=== PATIENT | female | born 1960 | race Caucasian/White ===

== ENCOUNTER 2016-07-14 16:53 | Emergency (ER) | payer MEDICAID ==
[2016-07-14] MEDS ORDERED: Sodium Chloride 0.9% 1,000 ML IV ONE (17:26)
[2016-07-14] MEDS ORDERED: Morphine 10 MG/ML Syringe IV ONE (17:26)
[2016-07-14] MEDS ORDERED: Ondansetron 4 MG/2 ML SDV IVPUSH ONE (17:26)
--- NOTE | 2016-07-14 17:32 | EDM.PDOC ---
ED HPI GI/ABDOMINAL - General Chief Complaint: Abdominal Pain Stated Complaint: PAIN IN ABDOMEN Time Seen by Provider: 07/14/16 17:25 Source of Information: Reports: Patient History Limitations: Reports: No limitations - History of Present Illness INITIAL COMMENTS - FREE TEXT/NARRATIVE: History of present illness: [55-year-old female presenting with abdominal pain diffusely spread across all quadrants a 6-810 status post left kidney resection for cancer on . Patient indicates this pain is new and increasing and that the abdomen is not any larger than it was before.] Review of systems: As per history of present illness and below otherwise all systems reviewed and negative. Past medical history: As per history of present illness and as reviewed below otherwise noncontributory. Surgical history: As per history of present illness and as reviewed below otherwise noncontributory. Social history: No reported history of drug or alcohol abuse. Family history: As per history of present illness and as reviewed below otherwise noncontributory. Physical exam: HEENT: Atraumatic, normocephalic, pupils reactive, negative for conjunctival pallor or scleral icterus, mucous membranes moist, throat clear, neck supple, nontender, trachea midline. Lungs: Clear to auscultation, breath sounds equal bilaterally, chest nontender. Heart: S1S2, regular, negative for clicks, rubs, or JVD. Abdomen: Firm, nondistended, exquisite tenderness in all quads. Negative for masses or hepatosplenomegaly. Negative for costovertebral tenderness. Pelvis: Stable nontender. Genitourinary: Deferred. Rectal: Deferred. Extremities: Atraumatic, negative for cords or calf pain. Neurovascular unremarkable. Neuro: Awake, alert, oriented. Cranial nerves II through XII unremarkable. Cerebellum unremarkable. Motor and sensory unremarkable throughout. Exam nonfocal. Diagnostics: [CBC, CMP, INR, CT of abdomen and pelvis with contrast] Therapeutics: [IV, morphine, Zofran] Impression: [Dental pain] Plan: [Transfer to [place]] Definitive disposition and diagnosis as appropriate pending reevaluation and review of above. - Related Data Allergies/ADRs: Allergies Allergy/AdvReac Type Severity Reaction Status Date / Time prednisolone Allergy Agitation Verified 01/21/16 23:59 Home Meds: Home Meds Amitriptyline [Elavil] 25 mg PO BEDTIME 07/26/15 [History] Furosemide [Lasix] 20 mg PO DAILY 07/26/15 [History] Insulin Aspart [NovoLOG] See Protocol SQ ASDIRECTED 07/26/15 [History] Metoprolol Succinate [Toprol XL] 25 mg PO DAILY 07/26/15 [History] Omeprazole 20 mg PO DAILY 07/26/15 [History] Pregabalin [Lyrica] 300 mg PO BID 07/26/15 [History] Zolpidem [Ambien] 5 mg PO BEDTIME PRN 07/26/15 [History] DULoxetine [Cymbalta] 60 mg PO DAILY 12/09/15 [History] atorvaSTATin Calcium [Atorvastatin Calcium] 80 mg PO BEDTIME 12/09/15 [History] Hydrocodone/Acetaminophen [Hydrocodon-Acetaminophen 5-325] 1 - 2 each PO Q4HR PRN 01/04/16 [History] Apixaban [Eliquis] 5 mg PO DAILY 07/14/16 [History] Docusate Sodium [Doc-Q-Lace] 100 mg PO DAILY 07/14/16 [History] Tresiba 200 Units/Ml 72 units SQ BEDTIME 07/14/16 [History] Past Medical History HEENT History: Reports: Other (see below) Other HEENT History: uses reading glasses, has dentures but doesn't wear Cardiovascular History: Reports: High cholesterol, Hypertension, PVD Respiratory History: Reports: COPD, Sleep apnea Other Respiratory History: does not use CPAP Gastrointestinal History: Reports: GERD Genitourinary History: Reports: Urinary incontinence, Other (see below) Other Genitourinary History: currently has a kidney mass [employer]OR History: Reports: Ectopic , Musculoskeletal History: Reports: Fracture Other Musculoskeletal History: pinky knuckle Neurological History: Reports: Neuropathy, diabetic Psychiatric History: Reports: Anxiety, Depression Endocrine/Metabolic History: Reports: Diabetes, type II, Obesity/BMI 30+ Hematologic History: Reports: Blood transfusion(s) Other Hematologic History: blood transfusion with ectopic Immunologic History: Reports: None Oncologic (Cancer) History: Reports: None Dermatologic History: Reports: None Other Dermatologic History: 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 - Infectious Disease History Infectious Disease History: Reports: None - Past Surgical History Head Surgeries/Procedures: Reports: None HEENT Surgical History: Reports: None Cardiovascular Surgical History: Reports: None GI Surgical History: Reports: Cholecystectomy, Colonoscopy Female Surgical History: Reports: section, Hysterectomy, Salpingo- oophorectomy, Other (see below) Other Female Surgeries/Procedures: Laparotomy for ectopic , bladder repair surgery (sling x2 failed) Endocrine Surgical History: Reports: None Neurological Surgical History: Reports: None Musculoskeletal Surgical History: Reports: Amputation Other Musculoskeletal Surgeries/Procedures:: right foot...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 Oncologic Surgical History: Reports: None Dermatological Surgical History: Reports: None Social & Family History - Family History Family Medical History: Noncontributory HEENT: Reports: None Cardiac: Reports: CAD, [place] Respiratory: Reports: COPD OBGYN: Reports: Musculoskeletal: Reports: Arthritis Neurological: Reports: CVA, Seizure Endocrine/Metabolic: Reports: Diabetes, type II Oncologic: Reports: Colon - Tobacco Use Smoking Status *Q: Former Smoker Years of Tobacco use: 40 Packs/Tins Daily: 1 Used Tobacco, but Quit: No Month Tobacco Last Used: December 2015 Second Hand Smoke Exposure: Yes - Caffeine Use Caffeine Use: Reports: Coffee, Soda, Tea - Recreational Drug Use Recreational Drug Use: No Drug Use in Last 12 Months: No ED ROS GENERAL - Review of Systems Review Of Systems: See Below (See history of present illness) ED EXAM, GI/ABD - Physical Exam Exam: See Below (See history of present illness) Course - Vital Signs Last Recorded V/S: Last Vital Signs Temp 36.4 C 07/14/16 19:20 Pulse 83 07/14/16 19:20 Resp 20 07/14/16 19:20 BP 139/59 L 07/14/16 19:20 Pulse Ox 98 07/14/16 19:20 - Orders/Labs/Meds Orders: Active Orders 24 hr Category Date Time Status Abdomen Pelvis wo Cont [CT] Stat Exams 07/14/16 18:37 Taken Labs: Laboratory Tests 07/14/16 07/14/16 07/14/16 Range/Units 17:59 17:59 17:59 WBC 11.65 H (4.0-11.0) K/uL RBC 5.09 (4.30-5.90) M/uL Hgb 14.1 (12.0-16.0) g/dL Hct 42.8 (36.0-46.0) % MCV 84.1 (80.0-98.0) fL MCH 27.7 (27.0-32.0) pg MCHC 32.9 (31.0-37.0) g/dL RDW Std Deviation 52.0 (28.0-62.0) fl RDW Coeff of Bony 17 H (11.0-15.0) % Plt Count 260 (150-400) K/uL MPV 11.00 (7.40-12.00) fL Neut % (Auto) 63.9 (48.0-80.0) % Lymph % (Auto) 27.6 (16.0-40.0) % Early % (Auto) 6.4 (0.0-15.0) % Eos % (Auto) 1.8 (0.0-7.0) % Baso % (Auto) 0.3 (0.0-1.5) % Neut # (Auto) 7.4 H (1.4-5.7) K/uL Lymph # (Auto) 3.2 H (0.6-2.4) K/uL Early # (Auto) 0.8 (0.0-0.8) K/uL Eos # (Auto) 0.2 (0.0-0.7) K/uL Baso # (Auto) 0.0 (0.0-0.1) K/uL Nucleated RBC % 0.0 /100WBC Nucleated RBCs # 0 K/uL INR 0.95 (0.86-1.11) Sodium 138 (136-146) mmol/L Potassium 4.1 (3.5-5.1) mmol/L Chloride 101 (98-110) mmol/L Carbon Dioxide 24 (21-31) mmol/L BUN 9 (6.0-23.0) mg/dL Creatinine 0.8 (0.6-1.5) mg/dL Est Cr Clr Drug Dosing 74.38 mL/min Estimated GFR (MDRD) > 60.0 ml/min Glucose 327 H (60-110) mg/dL Calcium 9.6 (8.8-10.8) mg/dL Total Bilirubin 0.4 (0.1-1.5) mg/dL AST 10 (5-40) IU/L ALT 19 (8-54) IU/L Alkaline Phosphatase 158 H (40-150) Total Protein 8.0 (6.0-8.0) g/dL Albumin 3.9 (3.5-5.0) g/dL Globulin 4.1 H (2.0-3.5) g/dL Albumin/Globulin Ratio 1.0 L (1.3-2.8) Amylase 19 (10-90) U/L Lipase < 8 (7-80) U/L Meds: Medications Discontinued Medications Generic Name Dose Route Start Last Admin Trade Name Meenakshi PRN Reason Stop Dose Admin Sodium Chloride 1,000 mls @ 999 mls/hr 07/14/16 17:26 07/14/16 18:01 Normal Saline IV 07/14/16 18:26 999 mls/hr STAT ONE Administration Morphine Sulfate 2 mg 07/14/16 17:26 07/14/16 18:05 Morphine IV 07/14/16 17:27 2 mg ONETIME ONE Administration Morphine Sulfate 2 mg 07/14/16 20:50 07/14/16 21:30 Morphine IVPUSH 07/14/16 20:51 2 mg ONETIME ONE Administration Ondansetron HCl 8 mg 07/14/16 17:26 07/14/16 18:02 Zofran IVPUSH 07/14/16 17:27 8 mg ONETIME ONE Administration Departure - Departure Time of Disposition: 21:41 Disposition: DC/Tfer to Acute Hospital 02 Condition: good Clinical Impression: Abdominal pain Forms: ED Department Discharge - My Orders Last 24 Hours: My Active Orders 07/14/16 18:37 Abdomen Pelvis wo Cont [CT] Stat - Assessment/Plan Last 24 Hours: My Active Orders 07/14/16 18:37 Abdomen Pelvis wo Cont [CT] Stat
[2016-07-14 18:30] LABS: CHLORIDE,CL 101 mmol/L (98-110); SODIUM,NA 138 mmol/L (136-146)
[2016-07-14] MEDS ORDERED: Morphine 2 MG/ML Syringe IVPUSH ONE (20:50)
[2016-07-15 01:48] VITALS: BP 114/55
--- NOTE | 2016-07-15 15:42 | CT ---
EXAM DATE: 07/14/16 PATIENT'S AGE: 55 Patient: JOSE SANTOS Facility: [place], [place] Site . Site : 1960 Study: CT Abdomen/Pelvis [id number] 6:51:05 PM Ordering Physician: Doctor Mason Final Report: INDICATION: Abdominal pain. Status post partial nephrectomy 9 days ago. TECHNIQUE: CT abdomen and pelvis without contrast. COMPARISON: None available FINDINGS: Lower chest: Unremarkable. Liver: Hepatomegaly measuring 26.6 centimeters craniocaudally. Mild hepatic steatosis. Small foci of increased attenuation could be related to foci of fatty sparing or nonspecific lesions. A 2.1 x 1.4 centimeter irregular near water attenuation in the posterior aspect of the lateral segment of the left hepatic lobe, suggestive of a cyst Spleen: Mild splenomegaly measuring 13.9 centimeters. Pancreas: Unremarkable. Gallbladder and bile ducts: Cholecystectomy. Adrenal glands: A 2.9 x 1.9 centimeter left adrenal low density nodule, demonstrating internal attenuation of approximately 5 Hounsfield units, compatible with an adenoma. Kidneys: Postsurgical changes in the left renal lower pole status post partial resection with adjacent stranding and edema. A 3.8 x 2.4 x 7 centimeter slightly higher than water attenuation inferior left perirenal collection. No hydronephrosis or discrete urolithiasis. GI tract: No bowel obstruction. A normal appendix. Sigmoid diverticula without diverticulitis. Vascular structures: Arthrosclerotic changes. Lymph nodes: Borderline periportal/portacaval and pelvic lymph nodes, as well as shotty subcentimeter left para-aortic lymph nodes, nonspecific. Miscellaneous: No free air or significant free fluid. Areas of edema in the anterior abdominal wall subcutaneous fat, probably residual postsurgical. Pelvic Organs: Post hysterectomy changes. Prominent left adnexa for the patient` s age measuring 4.4 x 2.8 centimeters, containing low-density structures, which measure up to 1.9 x 2.0 centimeters. A small focus of gas within the urinary bladder. Bones: A mohit transitional lumbosacral anatomy on the left. IMPRESSION: Post partial left nephrectomy changes. A slightly higher than water attenuation left perirenal collection could represent a seroma or an evolving hematoma. An infected collection cannot be excluded without intravenous contrast. Hepatosplenomegaly. Mild hepatic steatosis. Several small dense hepatic foci could be related to fatty sparing, although small lesions are not excluded. Recommend followup postcontrast evaluation. Shotty subcentimeter and borderline abdominal and pelvic lymph nodes, nonspecific. If there is history of malignancy, followup should be obtained. Enlarged left adnexa for the patient`s age, containing low-density lesions, measuring up to 2 centimeters. Recommend sonographic evaluation and followup in a patient of this age, to exclude neoplasm. A small focus of gas in the urinary bladder is probably related to recent instrumentation. Correlate with urinalysis to exclude an infectious process. Dictated by Taj Elizabeth MD @ 07/14/2016 7:32:25 PM Dictated by: Taj Elizabeth MD @ 07/14/2016 19:32:33 (Electronic Signature) Report Signed by Proxy and Original Signed Document filed in the Medical Record. MTDD
== END 2016-07-14 22:20 ==
LOC: MW.ED 16:53
DX: R10.84 Generalized abdominal pain (principal); I10 Essential (primary) hypertension; E78.00 Pure hypercholesterolemia, unspecified; J44.9 Chronic obstructive pulmonary disease, unspecified; G47.30 Sleep apnea, unspecified; K21.9 Gastro-esophageal reflux disease without esophagitis; E11.9 Type 2 diabetes mellitus without complications; F41.8 Other specified anxiety disorders; E66.9 Obesity, unspecified; Z68.30 Body mass index [BMI] 30.0-30.9, adult; Z90.49 Acquired absence of other specified parts of digestive tract; Z98.890 Other specified postprocedural states; Z90.710 Acquired absence of both cervix and uterus; Z89.421 Acquired absence of other right toe(s); Z87.891 Personal history of nicotine dependence; Z79.4 Long term (current) use of insulin; Z79.899 Other long term (current) drug therapy; Z88.8 Allergy status to other drugs, medicaments and biological substances
CPT/HCPCS: 36415; 74176; 80053; 82150; 83690; 85025; 85610; 96361; 96374; 96375; 96376; 99285; J2270; J2405; J7040; 99284

== ENCOUNTER 2016-07-17 20:12 | Observation (INO) | payer MEDICAID ==
--- NOTE | 2016-07-17 20:18 | EDM.PDOC ---
ED HPI GENERAL MEDICAL PROBLEM - General Stated Complaint: CHEST PAIN Time Seen by Provider: 07/17/16 20:14 - History of Present Illness INITIAL COMMENTS - FREE TEXT/NARRATIVE: HISTORY AND PHYSICAL: History of present illness: Patient 55-year-old white female past medical history significant for diabetes hypertension and recent renal biopsy was of concern of chest pain is vaguely described no associated shortness of breath nausea vomiting fever chills or other concern Review of systems: As per history of present illness and below otherwise all systems reviewed and negative. Past medical history: As per history of present illness and as reviewed below otherwise noncontributory. Surgical history: As per history of present illness and as reviewed below otherwise noncontributory. Social history: No reported history of drug or alcohol abuse. Family history: As per history of present illness and as reviewed below otherwise noncontributory. Physical exam: HEENT: Atraumatic, normocephalic, pupils reactive, negative for conjunctival pallor or scleral icterus, mucous membranes moist, throat clear, neck supple, nontender, trachea midline. Lungs: Clear to auscultation, breath sounds equal bilaterally, chest nontender. Heart: S1S2, regular, negative for clicks, rubs, or JVD. Abdomen: Soft, nondistended, nontender. Negative for masses or hepatosplenomegaly. Negative for costovertebral tenderness. Pelvis: Stable nontender. Genitourinary: Deferred. Rectal: Deferred. Extremities: Atraumatic, negative for cords or calf pain. Neurovascular unremarkable. Neuro: Awake, alert, oriented. Cranial nerves II through XII unremarkable. Cerebellum unremarkable. Motor and sensory unremarkable throughout. Exam nonfocal. Diagnostics: CBC CMP PT/INR troponin d-dimer chest x-ray EKG Therapeutics: IV O2 monitor she received aspirin by EMS prior to arrival Impression: #1 chest pain #2 history of diabetes #3 history of hypertension #4 recent renal biopsy Definitive disposition and diagnosis as appropriate pending reevaluation and review of above. - Related Data Allergies Allergy/AdvReac Type Severity Reaction Status Date / Time prednisolone Allergy Agitation Verified 01/21/16 23:59 Home Meds: Home Meds Amitriptyline [Elavil] 25 mg PO BEDTIME 07/26/15 [History] Furosemide [Lasix] 20 mg PO DAILY 07/26/15 [History] Insulin Aspart [NovoLOG] See Protocol SQ ASDIRECTED 07/26/15 [History] Metoprolol Succinate [Toprol XL] 25 mg PO DAILY 07/26/15 [History] Omeprazole 20 mg PO DAILY 07/26/15 [History] Pregabalin [Lyrica] 300 mg PO BID 07/26/15 [History] Zolpidem [Ambien] 5 mg PO BEDTIME PRN 07/26/15 [History] DULoxetine [Cymbalta] 60 mg PO DAILY 12/09/15 [History] atorvaSTATin Calcium [Atorvastatin Calcium] 80 mg PO BEDTIME 12/09/15 [History] Hydrocodone/Acetaminophen [Hydrocodon-Acetaminophen 5-325] 1 - 2 each PO Q4HR PRN 01/04/16 [History] Apixaban [Eliquis] 5 mg PO DAILY 07/14/16 [History] Docusate Sodium [Doc-Q-Lace] 100 mg PO DAILY 07/14/16 [History] Tresiba 200 Units/Ml 72 units SQ BEDTIME 07/14/16 [History] Past Medical History HEENT History: Reports: Other (see below) Other HEENT History: uses reading glasses, has dentures but doesn't wear Cardiovascular History: Reports: High cholesterol, Hypertension, PVD Respiratory History: Reports: COPD, Sleep apnea Other Respiratory History: does not use CPAP Gastrointestinal History: Reports: GERD Genitourinary History: Reports: Urinary incontinence, Other (see below) Other Genitourinary History: currently has a kidney mass [employer]KEET [employer]ISER History: Reports: Ectopic , Musculoskeletal History: Reports: Fracture Other Musculoskeletal History: pinky knuckle Neurological History: Reports: Neuropathy, diabetic Psychiatric History: Reports: Anxiety, Depression Endocrine/Metabolic History: Reports: Diabetes, type II, Obesity/BMI 30+ Hematologic History: Reports: Blood transfusion(s) Other Hematologic History: blood transfusion with ectopic Immunologic History: Reports: None Oncologic (Cancer) History: Reports: None Dermatologic History: Reports: None Other Dermatologic History: 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 - Infectious Disease History Infectious Disease History: Reports: None - Past Surgical History Head Surgeries/Procedures: Reports: None HEENT Surgical History: Reports: None Cardiovascular Surgical History: Reports: None GI Surgical History: Reports: Cholecystectomy, Colonoscopy Female Surgical History: Reports: section, Hysterectomy, Salpingo- oophorectomy, Other (see below) Other Female Surgeries/Procedures: Laparotomy for ectopic , bladder repair surgery (sling x2 failed) Endocrine Surgical History: Reports: None Neurological Surgical History: Reports: None Musculoskeletal Surgical History: Reports: Amputation Other Musculoskeletal Surgeries/Procedures:: right foot...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 Oncologic Surgical History: Reports: None Dermatological Surgical History: Reports: None Social & Family History - Family History Family Medical History: Noncontributory HEENT: Reports: None Cardiac: Reports: CAD, [place] Respiratory: Reports: COPD OBGYN: Reports: Musculoskeletal: Reports: Arthritis Neurological: Reports: CVA, Seizure Endocrine/Metabolic: Reports: Diabetes, type II Oncologic: Reports: Colon - Tobacco Use Smoking Status *Q: Former Smoker Years of Tobacco use: 40 Packs/Tins Daily: 1 Used Tobacco, but Quit: No Month Tobacco Last Used: December 2015 Second Hand Smoke Exposure: Yes - Caffeine Use Caffeine Use: Reports: Coffee, Soda, Tea - Recreational Drug Use Recreational Drug Use: No Drug Use in Last 12 Months: No ED ROS GENERAL - Review of Systems Review Of Systems: ROS reveals no pertinent complaints other than HPI. ED EXAM, GENERAL - Physical Exam Exam: See Below (See dictation) Course - Vital Signs Last Recorded V/S: Last Vital Signs Temp 36.6 C 07/17/16 20:34 Pulse 95 07/17/16 20:34 Resp 20 07/17/16 20:34 BP 121/72 07/17/16 20:34 Pulse Ox 97 07/17/16 20:34 - Orders/Labs/Meds Orders: Active Orders 24 hr Category Date Time Status EKG Documentation Completion [RC] STAT Care 07/17/16 20:15 Active Ang Chest [CT] Stat Exams 07/17/16 21:03 Ordered Chest 1V Frontal [CR] Stat Exams 07/17/16 20:15 Taken CKMB [CHEM] Stat Lab 07/17/16 20:26 Received COMPREHENSIVE METABOLIC PN,CMP [CHEM] Stat Lab 07/17/16 20:26 Received Labs: Laboratory Tests 07/17/16 07/17/16 07/17/16 Range/Units 20:26 20:26 20:26 WBC 12.12 H (4.0-11.0) K/uL RBC 5.26 (4.30-5.90) M/uL Hgb 14.5 (12.0-16.0) g/dL Hct 43.5 (36.0-46.0) % MCV 82.7 (80.0-98.0) fL MCH 27.6 (27.0-32.0) pg MCHC 33.3 (31.0-37.0) g/dL RDW Std Deviation 50.0 (28.0-62.0) fl RDW Coeff of Bony 17 H (11.0-15.0) % Plt Count 262 (150-400) K/uL MPV 11.40 (7.40-12.00) fL Neut % (Auto) 68.4 (48.0-80.0) % Lymph % (Auto) 23.9 (16.0-40.0) % Reynolds % (Auto) 5.8 (0.0-15.0) % Eos % (Auto) 1.5 (0.0-7.0) % Baso % (Auto) 0.4 (0.0-1.5) % Neut # (Auto) 8.3 H (1.4-5.7) K/uL Lymph # (Auto) 2.9 H (0.6-2.4) K/uL Reynolds # (Auto) 0.7 (0.0-0.8) K/uL Eos # (Auto) 0.2 (0.0-0.7) K/uL Baso # (Auto) 0.1 (0.0-0.1) K/uL Nucleated RBC % 0.0 /100WBC Nucleated RBCs # 0 K/uL D-Dimer, Quantitative 0.56 H (0.0-0.52) mg/LFEU Troponin I < 0.10 (0.0-0.29) NG/ML Departure - Departure Time of Disposition: 21:10 Disposition: Refer to Observation Condition: good Clinical Impression: Chest pain - My Orders Last 24 Hours: My Active Orders 07/17/16 20:15 EKG Documentation Completion [RC] STAT Chest 1V Frontal [CR] Stat 07/17/16 20:26 CKMB [CHEM] Stat COMPREHENSIVE METABOLIC PN,CMP [CHEM] Stat 07/17/16 21:03 Ang Chest [CT] Stat - Assessment/Plan Last 24 Hours: My Active Orders 07/17/16 20:15 EKG Documentation Completion [RC] STAT Chest 1V Frontal [CR] Stat 07/17/16 20:26 CKMB [CHEM] Stat COMPREHENSIVE METABOLIC PN,CMP [CHEM] Stat 07/17/16 21:03 Ang Chest [CT] Stat
[2016-07-17 21:11] LABS: CHLORIDE,CL 103 mmol/L (98-110); SODIUM,NA 139 mmol/L (136-146)
[2016-07-17] MEDS ORDERED: Iopamidol 755 Mg/ML 100 ML Bottle IVPUSH STA (21:19)
--- NOTE | 2016-07-17 23:18 | PCM.HP ---
H&P History of Present Illness - General Date of Service: 07/17/16 Source of Information: Patient History Limitations: Reports: No limitations - History of Present Illness Initial Comments - Free Text/Narative: 55 y o diabetic woman with recent laparoscopic removal of L renal tumor, has been complaining iof a lot of burping since procedure, Awoke nauseted, ate very little, eventually had sharp ( stabbing ) pain across upper chest and into R arm relieved by NTG in ER worsened with deep breath Onset of Symptoms: Reports: today Duration of Symptoms: Reports: Hour(s): Location: Reports: chest, upper extremity, right Quality: Reports: Sharp, Stabbing Severity: moderate Improves with: Reports: Other (ntg) Worsens with: Reports: Breathing Associated Symptoms: Reports: diaphoresis Right Upper Chest Pain Score (Numeric/FACES): 3 - Related Data Allergies/Adverse Reactions: Allergies Allergy/AdvReac Type Severity Reaction Status Date / Time prednisolone Allergy Agitation Verified 01/21/16 23:59 Home Medications: Home Meds Amitriptyline [Elavil] 25 mg PO BEDTIME 07/26/15 [History] Furosemide [Lasix] 20 mg PO DAILY 07/26/15 [History] Insulin Aspart [NovoLOG] See Protocol SQ ASDIRECTED 07/26/15 [History] Metoprolol Succinate [Toprol XL] 25 mg PO DAILY 07/26/15 [History] Omeprazole 20 mg PO DAILY 07/26/15 [History] Pregabalin [Lyrica] 300 mg PO BID 07/26/15 [History] Zolpidem [Ambien] 5 mg PO BEDTIME PRN 07/26/15 [History] DULoxetine [Cymbalta] 60 mg PO DAILY 12/09/15 [History] atorvaSTATin Calcium [Atorvastatin Calcium] 80 mg PO BEDTIME 12/09/15 [History] Hydrocodone/Acetaminophen [Hydrocodon-Acetaminophen 5-325] 1 - 2 each PO Q4HR PRN 01/04/16 [History] Apixaban [Eliquis] 5 mg PO DAILY 07/14/16 [History] Docusate Sodium [Doc-Q-Lace] 100 mg PO DAILY 07/14/16 [History] Tresiba 200 Units/Ml 72 units SQ BEDTIME 07/14/16 [History] oxyCODONE HCl/Acetaminophen [Endocet 5-325 Tablet] 1 tab PO Q4HR PRN 07/17/16 [ History] Past Medical History HEENT History: Reports: Other (see below) Other HEENT History: uses reading glasses, has dentures but doesn't wear Cardiovascular History: Reports: High cholesterol, Hypertension, PVD Respiratory History: Reports: COPD, Sleep apnea Other Respiratory History: does not use CPAP Gastrointestinal History: Reports: GERD Genitourinary History: Reports: Urinary incontinence, Other (see below) Other Genitourinary History: currently has a kidney mass [employer] History: Reports: Ectopic , Musculoskeletal History: Reports: Fracture Other Musculoskeletal History: pinky knuckle Neurological History: Reports: Neuropathy, diabetic Psychiatric History: Reports: Anxiety, Depression Endocrine/Metabolic History: Reports: Diabetes, type II, Obesity/BMI 30+ Hematologic History: Reports: Blood transfusion(s) Other Hematologic History: blood transfusion with ectopic Immunologic History: Reports: None Oncologic (Cancer) History: Reports: None Dermatologic History: Reports: None Other Dermatologic History: 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 - Infectious Disease History Infectious Disease History: Reports: None - Past Surgical History Head Surgeries/Procedures: Reports: None HEENT Surgical History: Reports: None Cardiovascular Surgical History: Reports: None GI Surgical History: Reports: Cholecystectomy, Colonoscopy Female Surgical History: Reports: section, Hysterectomy, Salpingo- oophorectomy, Other (see below) Other Female Surgeries/Procedures: Laparotomy for ectopic , bladder repair surgery (sling x2 failed) Endocrine Surgical History: Reports: None Neurological Surgical History: Reports: None Musculoskeletal Surgical History: Reports: Amputation Other Musculoskeletal Surgeries/Procedures:: right foot...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 Oncologic Surgical History: Reports: None, Other (see below) (R renal tumour) Dermatological Surgical History: Reports: None Social & Family History - Family History Family Medical History: Noncontributory HEENT: Reports: None Cardiac: Reports: CAD (mother side), [place] Respiratory: Reports: COPD OBGYN: Reports: Musculoskeletal: Reports: Arthritis Neurological: Reports: CVA, Seizure Endocrine/Metabolic: Reports: Diabetes, type II Oncologic: Reports: Colon (father age 50) - Tobacco Use Smoking Status *Q: Former Smoker Years of Tobacco use: 40 Packs/Tins Daily: 1 Used Tobacco, but Quit: No Month Tobacco Last Used: December 2015 Second Hand Smoke Exposure: Yes - Caffeine Use Caffeine Use: Reports: Coffee, Soda, Tea - Recreational Drug Use Recreational Drug Use: No Drug Use in Last 12 Months: No H&P Review of Systems - Review of Systems: Review Of Systems: See Below General: Reports: weight loss (reports 75 lb drop in4-5 yrs) HEENT: Reports: no symptoms Pulmonary: Reports: No Symptoms Cardiovascular: Reports: no symptoms Gastrointestinal: Reports: Diarrhea Genitourinary: Reports: no symptoms (diagnosed with UTI but has not taken antibiotics) Musculoskeletal: Reports: no symptoms Skin: Reports: no symptoms Psychiatric: Reports: no symptoms Neurological: Reports: Numbness, Paresthesia (neuropathy) Exam - Exam Exam: See Below - Vital Signs Vital Signs: Last Vital Signs Temp 37.1 C 07/17/16 22:30 Pulse 97 07/17/16 22:30 Resp 19 07/17/16 22:30 BP 142/72 H 07/17/16 22:30 Pulse Ox 94 L 07/17/16 22:30 Weight: 113.398 kg - Exam General: alert HEENT: Conjunctiva clear, Other (xanthelasma) Neck: 2+ carotid pulse wo bruit Lungs: Clear to auscultation Cardiovascular: regular rate, regular rhythm Abdomen: soft, other (clean healing stab incisions L abdomen) (Female) Exam: Deferred Rectal (Female) Exam: Deferred Back Exam: normal inspection Extremities: other (R forefoot amputation, well healed) Skin: warm Neurological: cranial nerves intact Neuro Extensive - Mental Status: alert, memory intact Neuro Extensive - Motor, Sensory, Reflexes: CN II-XII intact Psychiatric: alert - Patient Data Result Diagrams: 07/17/16 20:26 07/17/16 20:26 EKG INTERPRETATION Rhythm: NSR [place]: normal P-wave: present QRS: normal ST-T: normal QT: normal *Q Meaningful Use (ADM) - VTE *Q VTE Criteria *Q: VTE Pharmacological Contraindications *Q: Bld Coagulation Disorder - Stroke *Q Stroke Criteria *Q: - AMI *Q AMI Criteria *Q: Problem List Initiated/Reviewed/Updated: Yes Orders Last 24hrs: Active Orders 24 hr Category Date Time Status Blood Glucose Check, Bedside [RC] QIDACANDBED Care 07/17/16 23:03 Ordered Oxygen Therapy [RC] PRN Care 07/17/16 23:03 Ordered VTE/DVT Education [RC] PER UNIT ROUTINE Care 07/17/16 23:03 Ordered Vital Signs [RC] Q4H Care 07/17/16 23:03 Ordered [place] [employer] Diet [DIET] Diet 07/17/16 Breakfast Ordered TROPONIN I [CHEM] AM Lab 07/18/16 05:11 Ordered UA W/MICROSCOPIC [URIN] Routine Lab 07/17/16 23:08 Uncollected Amitriptyline [Elavil] Med 07/18/16 21:00 Ordered 25 mg PO BEDTIME Apixaban [Eliquis] Med 07/18/16 09:00 Ordered 5 mg PO DAILY DULoxetine [Cymbalta] Med 07/18/16 09:00 Ordered 60 mg PO DAILY Metoprolol Succinate [Toprol XL] Med 07/18/16 09:00 Ordered 25 mg PO DAILY Nicotine [Habitrol] Med 07/18/16 09:00 Ordered 7 mg TRDERM DAILY Omeprazole Med 07/18/16 09:00 Ordered 20 mg PO DAILY Pregabalin [Lyrica] Med 07/18/16 09:00 Ordered 300 mg PO BID atorvaSTATin Calcium [Atorvastatin Calcium] Med 07/18/16 21:00 Ordered 80 mg PO BEDTIME VTE Pharmacological Contraindications [AST] Per Unit Oth 07/17/16 23:03 Ordered Routine Resuscitation Status Routine Resus Stat 07/17/16 23:03 Ordered Medication Orders Amitriptyline HCl (Elavil) 25 mg PO BEDTIME [facility] Apixaban (Eliquis) 5 mg PO DAILY [facility] Duloxetine HCl (Cymbalta) 60 mg PO DAILY [facility] Non-Formulary Medication (Pregabalin [Lyrica]) 300 mg PO BID [facility] Non-Formulary Medication (Atorvastatin Calcium [Atorvastatin Calcium]) 80 mg PO BEDTIME [facility] Assessment/Plan Comment:: atypical chest pain cad risk factors ; DM HT smoking lipids 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
[2016-07-18] MEDS ORDERED: Insulin Aspart 100 Units/ML 3 ML Pen SUBCUT SCH (01:08)
[2016-07-18] MEDS: Insulin Aspart 100 Units/ML 3 ML Pen SUBCUT SCH ×4 (01:15→17:01)
[2016-07-18] MEDS ORDERED: Omeprazole 20 MG Cap.CR PO SCH (07:30)
[2016-07-18] MEDS ORDERED: Apixaban 5 MG Tab PO SCH ×2 (09:00)
[2016-07-18] MEDS ORDERED: Pregabalin 75 MG Cap PO SCH (09:00)
[2016-07-18] MEDS ORDERED: Nicotine 7 MG/24 Hr Patch TRDERM SCH (09:00)
[2016-07-18] MEDS ORDERED: Metoprolol Succinate 25 MG Tab.ER PO SCH (09:00)
[2016-07-18] MEDS ORDERED: DULoxetine 60 MG Cap PO SCH (09:00)
--- NOTE | 2016-07-18 12:31 | PCM.PN ---
- General Info Date of Service: 07/18/16 Functional Status: Reports: pain controlled - Review of Systems General: Reports: No Symptoms HEENT: Reports: no symptoms Pulmonary: Reports: no symptoms Cardiovascular: Reports: No Symptoms Gastrointestinal: Reports: No symptoms Genitourinary: Reports: no symptoms Musculoskeletal: Reports: no symptoms Skin: Reports: no symptoms Neurological: Reports: No Symptoms Psychiatric: Reports: no symptoms - Patient Data Vitals - most recent: Last Vital Signs Temp 36.1 C 07/18/16 11:22 Pulse 83 07/18/16 11:22 Resp 20 07/18/16 11:22 BP 135/65 07/18/16 11:22 Pulse Ox 97 07/18/16 11:22 Weight - most recent: 113.398 kg I&O - last 24 hours: Intake & Output 07/17/16 07/18/16 07/18/16 22:59 06:59 14:59 Intake Total 500 Output Total 750 Balance -250 Lab Results last 24 hrs: Laboratory Results - last 24 hr 07/17/16 07/18/16 07/18/16 Range/Units 23:35 00:50 05:25 POC Glucose 354 H (60-110) mg/dL Troponin I 0.34 H* (0.0-0.29) NG/ML Urine Color YELLOW Urine Appearance CLEAR Urine pH 5.5 (5.0-8.0) Ur Specific [place] 1.015 (1.001-1.035) Urine Protein NEGATIVE (NEGATIVE) mg/dL Urine Glucose (UA) 250 H (NEGATIVE) mg/dL Urine Ketones NEGATIVE (NEGATIVE) mg/dL Urine Occult Blood TRACE-INTACT (NEGATIVE) Urine Nitrite NEGATIVE (NEGATIVE) Urine Bilirubin NEGATIVE (NEGATIVE) Urine Urobilinogen 0.2 (<2.0) EU/dL Ur Leukocyte Esterase NEGATIVE (NEGATIVE) Urine RBC 0-2 (0-2/HPF) Urine WBC 1-7 (0-5/HPF) Ur Epithelial Cells FEW (NONE-FEW) Urine Bacteria FEW (NEGATIVE) Urine Mucus LIGHT (NONE-MOD) Urine Yeast FEW 07/18/16 07/18/16 Range/Units 06:53 11:37 POC Glucose 195 H (60-110) mg/dL Troponin I 0.27 (0.0-0.29) NG/ML Urine Color Urine Appearance Urine pH (5.0-8.0) Ur Specific [place] (1.001-1.035) Urine Protein (NEGATIVE) mg/dL Urine Glucose (UA) (NEGATIVE) mg/dL Urine Ketones (NEGATIVE) mg/dL Urine Occult Blood (NEGATIVE) Urine Nitrite (NEGATIVE) Urine Bilirubin (NEGATIVE) Urine Urobilinogen (<2.0) EU/dL Ur Leukocyte Esterase (NEGATIVE) Urine RBC (0-2/HPF) Urine WBC (0-5/HPF) Ur Epithelial Cells (NONE-FEW) Urine Bacteria (NEGATIVE) Urine Mucus (NONE-MOD) Urine Yeast Med Orders - Current: Current Medications Amitriptyline HCl (Elavil) 25 mg PO BEDTIME [facility] Apixaban (Eliquis) 5 mg PO BID [facility] Last Admin: 07/18/16 09:21 Dose: 5 mg Atorvastatin Calcium (Lipitor) 80 mg PO BEDTIME [facility] Duloxetine HCl (Cymbalta) 60 mg PO DAILY [facility] Last Admin: 07/18/16 09:20 Dose: 60 mg Insulin Aspart (Novolog) 15 unit SUBCUT ACBED [facility] Last Admin: 07/18/16 12:02 Dose: 15 units Metoprolol Succinate (Toprol Xl) 25 mg PO DAILY [facility] Last Admin: 07/18/16 09:22 Dose: 25 mg Nicotine (Habitrol) 7 mg TRDERM DAILY [facility] Last Admin: 07/18/16 09:22 Dose: Not Given Omeprazole (Omeprazole) 20 mg PO ACBREAKFAST [facility] Last Admin: 07/18/16 06:53 Dose: 20 mg Pregabalin (Lyrica) 300 mg PO BID [facility] Last Admin: 07/18/16 09:21 Dose: 300 mg Discontinued Medications Apixaban (Eliquis) 5 mg PO DAILY [facility] Iopamidol (Isovue-370 (76%)) 50 ml IVPUSH ONETIME STA Stop: 07/17/16 21:20 Last Admin: 07/17/16 21:21 Dose: 50 ml Comments:: Troponin this morning 0.34. Spoke with Dr Delgado regarding possible cath but he recommended awaiting third troponin before deciding and it is 0.27 Pt entirely asymptomatic and eager to return home Pt also reports having a stress kayli prior to her foot surgery just a few months ag, which is reassuring. Nevertheless, she will be given prn NTG as it gave her dramatic relief from her chest pain Blood sugars here rather poorly controlled, will probably do better on her home regimen with treseba - Exam General: alert HEENT: Pupils equal Neck: trachea midline Lungs: Clear to auscultation Cardiovascular: Regular Rate Abdomen: soft (Female) Exam: Normal external exam Back Exam: normal inspection Extremities: no edema Skin: warm Wound/Incisions: healing well Neurological: no new focal deficit Psy/Mental Status: alert, normal affect - Problem List Review Problem List Initiated/Reviewed/Updated: Yes - My Orders Last 24 Hours: My Active Orders 07/17/16 23:03 Blood Glucose Check, Bedside [RC] QIDACANDBED Oxygen Therapy [RC] PRN Telemetry Monitoring [Cardiac Monitoring] [RC] Q8H VTE/DVT Education [RC] PER UNIT ROUTINE Vital Signs [RC] Q4H VTE Pharmacological Contraindications [AST] Per Unit Routine Resuscitation Status Routine 07/18/16 01:15 Insulin Aspart [NovoLOG] 15 unit SUBCUT ACBED 07/18/16 07:30 Omeprazole 20 mg PO ACBREAKFAST 07/18/16 09:00 Apixaban [Eliquis] 5 mg PO BID DULoxetine [Cymbalta] 60 mg PO DAILY Metoprolol Succinate [Toprol XL] 25 mg PO DAILY Nicotine [Habitrol] 7 mg TRDERM DAILY Pregabalin [Lyrica] 300 mg PO BID 07/18/16 21:00 Amitriptyline [Elavil] 25 mg PO BEDTIME atorvaSTATin [Lipitor] 80 mg PO BEDTIME - Plan Plan:: atypical chest pain cad risk factors ; DM HT smoking lipids 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
--- NOTE | 2016-07-18 13:03 | PCM.DCSUM1 ---
Discharge Summary - Hospital Course Free Text/Narrative:: 55 yo diabetic woman with recent laparoscopic resection of L renal mass of unknown character had been feeling "gassy" ever since procedure. Awoke on day of admission with nausea, eventually stricken with sharp, pleuritic upper chest pain radiating to R upper arm She had prompt relief with NTG in the ER Labs were normal but for D-dimer but CT showed no PE, however there was a small nodule on the right Second troponin was minimally beyond normal but the third was withinlimits Pt rmained asymptomatic and was discharged home. She benefitted from nicotine replacement in the hospital and will be prescribed that as wll as nitroglycerine hank did provide dramatic symptomatic relief - Discharge Data Discharge Date: 07/18/16 Discharge Disposition: Home, Self-Care 01 Condition: Good - Discharge Diagnosis/Problem(s) (1) Chest pain SNOMED Code(s): 23372956 ICD Code: R07.9 - CHEST PAIN, UNSPECIFIED Status: Acute Current Visit: Yes Qualifiers: Chest pain type: chest pain on breathing Qualified Code(s): R07.1 - Chest pain on breathing - Patient Instructions Diet: Diabetic Diet Activity: As Tolerated - Discharge Plan Prescriptions/Med Rec: Nicotine [Habitrol] 7 mg TRDERM DAILY #30 patch Nitroglycerin 0.3 mg SL ASDIRECTED #25 tab.subl Home Medications: Home Meds Amitriptyline [Elavil] 25 mg PO BEDTIME 07/26/15 [History] Furosemide [Lasix] 20 mg PO DAILY 07/26/15 [History] Insulin Aspart [NovoLOG] See Protocol SQ ASDIRECTED 07/26/15 [History] Metoprolol Succinate [Toprol XL] 25 mg PO DAILY 07/26/15 [History] Omeprazole 20 mg PO DAILY 07/26/15 [History] Pregabalin [Lyrica] 300 mg PO BID 07/26/15 [History] Zolpidem [Ambien] 5 mg PO BEDTIME PRN 07/26/15 [History] DULoxetine [Cymbalta] 60 mg PO DAILY 12/09/15 [History] atorvaSTATin Calcium [Atorvastatin Calcium] 80 mg PO BEDTIME 12/09/15 [History] Hydrocodone/Acetaminophen [Hydrocodon-Acetaminophen 5-325] 1 - 2 each PO Q4HR PRN 01/04/16 [History] Apixaban [Eliquis] 5 mg PO BID 07/14/16 [History] Docusate Sodium [Doc-Q-Lace] 100 mg PO DAILY 07/14/16 [History] Tresiba 200 Units/Ml 82 units SQ BEDTIME 07/14/16 [History] oxyCODONE HCl/Acetaminophen [Endocet 5-325 Tablet] 1 tab PO Q4HR PRN 07/17/16 [ History] Nicotine [Habitrol] 7 mg TRDERM DAILY #30 patch 07/18/16 [Rx] Nitroglycerin 0.3 mg SL ASDIRECTED #25 tab.subl 07/18/16 [Rx] Patient Handouts: Nonspecific Chest Pain, [id number] Referrals: Chemo Carbajal MD [Physician] - 07/26/16 12:00 pm (CT scan 07/14/ shows a 5mm irregular nodule superior segment RLL needing follow up CT 6-12 mo17 ) - Discharge Summary/Plan Comment DC Time >30 min.: Yes - General Info Functional Status: Reports: pain controlled - Review of Systems General: Reports: No Symptoms HEENT: Reports: no symptoms Pulmonary: Reports: no symptoms Cardiovascular: Reports: No Symptoms Gastrointestinal: Reports: No symptoms Genitourinary: Reports: no symptoms Musculoskeletal: Reports: no symptoms Skin: Reports: no symptoms Neurological: Reports: No Symptoms Psychiatric: Reports: no symptoms - Patient Data Vitals - Most Recent: Last Vital Signs Temp 36.1 C 07/18/16 11:22 Pulse 83 07/18/16 11:22 Resp 20 07/18/16 11:22 BP 135/65 07/18/16 11:22 Pulse Ox 97 07/18/16 11:22 Weight - Most Recent: 113.398 kg I&O - Last 24 hours: Intake & Output 07/17/16 07/18/16 07/18/16 22:59 06:59 14:59 Intake Total 500 Output Total 750 Balance -250 Lab Results - Last 24 hrs: Laboratory Results - last 24 hr 07/17/16 07/18/16 07/18/16 Range/Units 23:35 00:50 05:25 POC Glucose 354 H (60-110) mg/dL Troponin I 0.34 H* (0.0-0.29) NG/ML Urine Color YELLOW Urine Appearance CLEAR Urine pH 5.5 (5.0-8.0) Ur Specific [place] 1.015 (1.001-1.035) Urine Protein NEGATIVE (NEGATIVE) mg/dL Urine Glucose (UA) 250 H (NEGATIVE) mg/dL Urine Ketones NEGATIVE (NEGATIVE) mg/dL Urine Occult Blood TRACE-INTACT (NEGATIVE) Urine Nitrite NEGATIVE (NEGATIVE) Urine Bilirubin NEGATIVE (NEGATIVE) Urine Urobilinogen 0.2 (<2.0) EU/dL Ur Leukocyte Esterase NEGATIVE (NEGATIVE) Urine RBC 0-2 (0-2/HPF) Urine WBC 1-7 (0-5/HPF) Ur Epithelial Cells FEW (NONE-FEW) Urine Bacteria FEW (NEGATIVE) Urine Mucus LIGHT (NONE-MOD) Urine Yeast FEW 07/18/16 07/18/16 07/18/16 Range/Units 06:53 11:37 11:47 POC Glucose 195 H 238 H (60-110) mg/dL Troponin I 0.27 (0.0-0.29) NG/ML Urine Color Urine Appearance Urine pH (5.0-8.0) Ur Specific [place] (1.001-1.035) Urine Protein (NEGATIVE) mg/dL Urine Glucose (UA) (NEGATIVE) mg/dL Urine Ketones (NEGATIVE) mg/dL Urine Occult Blood (NEGATIVE) Urine Nitrite (NEGATIVE) Urine Bilirubin (NEGATIVE) Urine Urobilinogen (<2.0) EU/dL Ur Leukocyte Esterase (NEGATIVE) Urine RBC (0-2/HPF) Urine WBC (0-5/HPF) Ur Epithelial Cells (NONE-FEW) Urine Bacteria (NEGATIVE) Urine Mucus (NONE-MOD) Urine Yeast Med Orders - Current: Current Medications Amitriptyline HCl (Elavil) 25 mg PO BEDTIME [facility] Apixaban (Eliquis) 5 mg PO BID [facility] Last Admin: 07/18/16 09:21 Dose: 5 mg Atorvastatin Calcium (Lipitor) 80 mg PO BEDTIME [facility] Duloxetine HCl (Cymbalta) 60 mg PO DAILY [facility] Last Admin: 07/18/16 09:20 Dose: 60 mg Insulin Aspart (Novolog) 15 unit SUBCUT ACBED [facility] Last Admin: 07/18/16 12:02 Dose: 15 units Metoprolol Succinate (Toprol Xl) 25 mg PO DAILY [facility] Last Admin: 07/18/16 09:22 Dose: 25 mg Nicotine (Habitrol) 7 mg TRDERM DAILY [facility] Last Admin: 07/18/16 09:22 Dose: Not Given Omeprazole (Omeprazole) 20 mg PO ACBREAKFAST [facility] Last Admin: 07/18/16 06:53 Dose: 20 mg Pregabalin (Lyrica) 300 mg PO BID [facility] Last Admin: 07/18/16 09:21 Dose: 300 mg Discontinued Medications Apixaban (Eliquis) 5 mg PO DAILY [facility] Iopamidol (Isovue-370 (76%)) 50 ml IVPUSH ONETIME STA Stop: 07/17/16 21:20 Last Admin: 07/17/16 21:21 Dose: 50 ml - Exam General: Reports: oriented HEENT: Reports: Pupils equal Neck: Reports: trachea midline Lungs: Reports: Clear to auscultation Cardiovascular: Reports: Regular Rate Abdomen: Reports: bowel sounds present (Female) Exam: Deferred Rectal (Female) Exam: Deferred Back Exam: Reports: normal inspection Extremities: Reports: no edema Skin: Reports: warm Wound/Incisions: Reports: healing well Neurological: Reports: no new focal deficit Psy/Mental Status: Reports: alert, normal mood *Q Meaningful Use (DIS) - VTE *Q VTE Criteria *Q: VTE Pharmacological Contraindications *Q: Bld Coagulation Disorder - Stroke *Q Stroke Criteria *Q: - AMI *Q AMI Criteria *Q:
[2016-07-18 16:40] VITALS: BP 122/71
--- NOTE | 2016-07-18 19:13 | CR ---
EXAM DATE: 07/17/16 PATIENT'S AGE: 55 Patient: JOSE SANTOS Facility: [place], [place] Site . Site : 1960 Study: XRay Chest [id number]/2/2017 8:39:22 PM Ordering Physician: Cori Garay Final Report: INDICATION: CHEST PAIN TECHNIQUE: Chest 1 view. COMPARISON: 01/21/2016 FINDINGS: Cardiovascular and mediastinum: Heart size and vasculature are normal in caliber and appearance. Mediastinum is within normal limits. Lungs and pleural space: Lungs are clear. No sign of infiltrate or mass. No sign of pleural effusion. No pneumothorax. Bones and soft tissues: No significant findings. IMPRESSION: Unremarkable chest. Dictated by: Myron Nagel MD @ 07/17/2016 21:10:42 (Electronic Signature) Report Signed by Proxy and Original Signed Document filed in the Medical Record. MTDD
--- NOTE | 2016-07-18 19:27 | CT ---
EXAM DATE: 07/17/16 PATIENT'S AGE: 55 Patient: JOSE SANTOS Facility: [place], [place] Site . Site : 1960 Study: CT Chest Angio [id number]/2/2017 10:15:30 PM Ordering Physician: Cori Garay Final Report: INDICATION: Elevated D-dimer. TECHNIQUE: CT chest pulmonary angiogram acquired with i.v. 50 mL Isovue 370. Coronal and sagittal reformats were obtained. COMPARISON: 07/14/2016 FINDINGS: Cardiovascular structures: The pulmonary arteries are unremarkable in appearance with no evidence of acute pulmonary embolism. The heart has an unremarkable appearance and size. No sign of aneurysm or dissection in the thoracic aorta. Mediastinum and lev: No mass or adenopathy seen. Lungs: There is an irregular 5 mm nodule seen in the superior segment of the right lower lobe on image 24. Pleura and pericardium: No pleural effusions are seen. No significant pericardial effusion is present. Chest wall and axilla: No mass or adenopathy seen. Bones: No significant findings. Upper abdomen: There is a left adrenal gland nodule present measuring 3.2 x 2.2 cm, better characterized by prior CT. IMPRESSION: 1. No CT evidence of pulmonary embolism seen. 2. A 5 mm nodule is present in the superior segment of the right lower lobe. Initial followup Chest CT in 6-12 months is advised in accordance with the Fleischner Society recommendations. 3. There is a left adrenal gland nodule present measuring 3.2 x 2.2 cm, better characterized by prior CT. Dictated by Harris Newell MD @ 07/17/2016 10:25:30 PM Dictated by: Harris Newell MD @ 07/17/2016 22:25:44 (Electronic Signature) Report Signed by Proxy and Original Signed Document filed in the Medical Record. CHUN
[2016-07-18] MEDS ORDERED: Amitriptyline 25 MG Tab PO SCH (21:00)
[2016-07-18] MEDS ORDERED: atorvaSTATin 40 MG Tab PO SCH (21:00)
== END 2016-07-18 18:00 | disposition home or self-care (01) ==
LOC: MW.ED 20:12 → MW.MS 21:12
PROVIDERS: ADMIT Internal Medicine; ATTEND Internal Medicine
DX: R07.1 Chest pain on breathing (principal); D49.519 Neoplasm of unspecified behavior of unspecified kidney; R91.1 Solitary pulmonary nodule; E27.8 Other specified disorders of adrenal gland; E78.00 Pure hypercholesterolemia, unspecified; I10 Essential (primary) hypertension; I73.9 Peripheral vascular disease, unspecified; J44.9 Chronic obstructive pulmonary disease, unspecified; G47.30 Sleep apnea, unspecified; K21.9 Gastro-esophageal reflux disease without esophagitis; E11.40 Type 2 diabetes mellitus with diabetic neuropathy, unspecified; E66.9 Obesity, unspecified; Z86.14 Personal history of Methicillin resistant Staphylococcus aureus infection; Z79.4 Long term (current) use of insulin; Z79.02 Long term (current) use of antithrombotics/antiplatelets; Z79.899 Other long term (current) drug therapy; Z88.8 Allergy status to other drugs, medicaments and biological substances; Z90.49 Acquired absence of other specified parts of digestive tract; Z90.710 Acquired absence of both cervix and uterus; Z90.721 Acquired absence of ovaries, unilateral; Z90.79 Acquired absence of other genital organ(s); Z98.890 Other specified postprocedural states; Z82.49 Family history of ischemic heart disease and other diseases of the circulatory system; Z87.891 Personal history of nicotine dependence
CPT/HCPCS: 36415; 71010; 71275; 80053; 81001; 82553; 82962; 84484; 85025; 85379; 93005; 99285; A9270; G0378; J1815; Q9967; 99283

== ENCOUNTER 2016-07-26 01:29 | Emergency (ER) | payer MEDICAID ==
[2016-07-26] MEDS ORDERED: Sodium Chloride 0.9% 2.5 ML Syringe FLUSH PRN (01:37)
[2016-07-26] MEDS ORDERED: Sodium Chloride 0.9% 10 ML Syringe FLUSH PRN (01:37)
[2016-07-26] MEDS ORDERED: Nitroglycerin 2% Oint 1 GM UD Packet TOP ONE (01:37)
--- NOTE | 2016-07-26 01:38 | EDM.PDOC ---
ED HPI GENERAL MEDICAL PROBLEM - General Chief Complaint: Chest Pain Stated Complaint: CHEST PAIN Time Seen by Provider: 07/26/16 01:35 - History of Present Illness INITIAL COMMENTS - FREE TEXT/NARRATIVE: HISTORY AND PHYSICAL: History of present illness: The patient is a 55-year-old female who follows in our family practice clinic and has a history of insulin requiring diabetes, hypertension, hypercholesterolemia, and a left renal mass which was recently removed and she is cancer free and presents via EMS with onset of chest pain approximately 11: 00 PM, 2-1/2 hours ago. The patient was admitted here to the hospital July 17 for indigestion and rule out cardiac and during that evaluation her troponin was zero in the ER but then raised to 0.34 but then fell to 0.27 so she was discharged. The patient has not followed up as a result of that admission because she had a followup appointment today in [facility] for her postop check up after her kidney surgery. The doctor yesterday said that everything was good from a cancer perspective and a surgical perspective. The patient has appointment tomorrow with Dr. Carbajal to followup the admission here and the cardiac issues. The patient states she had a normal day yesterday without any issues or problems and the discomfort started to the left of her sternum and she rated as 6-8/10 when it started. It then radiated to the right side of her chest and down her right arm but not to the abdomen or left side. She had some nausea but no shortness of breath or diaphoresis. The patient had a somewhat long transport time due to where she lives and she received 4 baby aspirin, 2 sublingual nitroglycerin, morphine 2 mg and Zofran 4 mg per paramedics and she is currently pain-free. Patient denies any leg pain or swelling and is currently taking Eliquis--- she states she was put on that by in [facility] after she had a diagnosis of arterial vascular disease and had to have toes amputated. She states that she is supposed to be taking that for one year. Patient denies any upper respiratory complaints and is a smoker. Review of systems: As per history of present illness and below otherwise all systems reviewed and negative. Past medical history: As per history of present illness and as reviewed below otherwise noncontributory. Surgical history: As per history of present illness and as reviewed below otherwise noncontributory. Social history: No reported history of drug or alcohol abuse. Family history: As per history of present illness and as reviewed below otherwise noncontributory. Physical exam: General: Well-developed well-nourished female is nontoxic and speaking clearly in the ED and is mildly overweight. Vital signs were noted by me. HEENT: Atraumatic, normocephalic, pupils reactive, negative for conjunctival pallor or scleral icterus, mucous membranes moist, throat clear, neck supple, nontender, trachea midline. Lungs: Clear to auscultation, breath sounds equal bilaterally, chest nontender. Heart: S1S2, regular, negative for clicks, rubs, or JVD. Abdomen: Soft, nondistended, nontender. Negative for masses or hepatosplenomegaly. Negative for costovertebral tenderness. There are well- healed incisions that are seen in the abdomen. Pelvis: Stable nontender. Genitourinary: Deferred. Rectal: Deferred. Extremities: Atraumatic, negative for cords or calf pain. Neurovascular unremarkable. There is no pedal edema or leg asymmetry Neuro: Awake, alert, oriented. Cranial nerves II through XII unremarkable. Cerebellum unremarkable. Motor and sensory unremarkable throughout. Exam nonfocal. Diagnostics: EKG chest x-ray CBC CMP INR troponin Therapeutics: IV O2 monitor nitro paste IV fluids insulin The patient is aware of her Accu-Chek of 335 and she states that when the discomfort started she drank a Coke in an effort to try to help with the team that it was indigestion and she doesn't normally drink Coke. I will give her insulin and IV hydration Please no medications that were given by EMS above in history of present illness. It is also noted that EMS did transmit EKGs while they were in transit and I been able to see those ; her initial EKG did show ST segment elevation in the inferior leads without any significant reciprocal change. That had normalized on the second EKG they sent me and on my EKG that has been performed here. 0202: I was notified that the patient was starting to have chest pain again which she rates a 4-6/10. Her vitals are stable I will perform her repeat EKG. Nitro paste had been placed already but we'll plan subungual nitros. Please note that the patient was discharged from our hospital on July 18 with sublingual nitros which the pharmacy had to obtain because they were on back order and the patient never got those. 0232: After 3 sublingual nitros the patient is chest pain-free. Repeat EKG will be performed. I did discuss this case with Dr. Da Silva our hospitalist at [facility] and he feels that the patient should be transferred at likely unstable angina do to her prior admission with bump in troponin in her current events today. 0239: Discussed the case with Dr. Wiseman in the ER at [facility] who accepts the patient for transfer. All of these conversations have been discussed with the patient and she is aware of the need for transfer due to the instability of the anginal symptoms and she is agreeable. I will reevaluate her heart rate and give Lopressor as indicated. I will remove the nitro paste and hang a low-dose nitro drip that the paramedics in route can titrate. Impression: Unstable angina Definitive disposition and diagnosis as appropriate pending reevaluation and review of above. - Related Data Allergies Allergy/AdvReac Type Severity Reaction Status Date / Time prednisolone Allergy Agitation Verified 07/26/16 01:37 Home Meds: Home Meds Amitriptyline [Elavil] 25 mg PO BEDTIME 07/26/15 [History] Furosemide [Lasix] 20 mg PO DAILY 07/26/15 [History] Insulin Aspart [NovoLOG] See Protocol SQ ASDIRECTED 07/26/15 [History] Metoprolol Succinate [Toprol XL] 25 mg PO DAILY 07/26/15 [History] Omeprazole 20 mg PO DAILY 07/26/15 [History] Pregabalin [Lyrica] 300 mg PO BID 07/26/15 [History] Zolpidem [Ambien] 5 mg PO BEDTIME PRN 07/26/15 [History] DULoxetine [Cymbalta] 60 mg PO DAILY 12/09/15 [History] atorvaSTATin Calcium [Atorvastatin Calcium] 80 mg PO BEDTIME 12/09/15 [History] Hydrocodone/Acetaminophen [Hydrocodon-Acetaminophen 5-325] 1 - 2 each PO Q4HR PRN 01/04/16 [History] Apixaban [Eliquis] 5 mg PO BID 07/14/16 [History] Docusate Sodium [Doc-Q-Lace] 100 mg PO DAILY 07/14/16 [History] Tresiba 200 Units/Ml 82 units SQ BEDTIME 07/14/16 [History] oxyCODONE HCl/Acetaminophen [Endocet 5-325 Tablet] 1 tab PO Q4HR PRN 07/17/16 [ History] Nicotine [Habitrol] 7 mg TRDERM DAILY #30 patch 07/18/16 [Rx] Nitroglycerin 0.3 mg SL ASDIRECTED #25 tab.subl 07/18/16 [Rx] Past Medical History HEENT History: Reports: Other (see below) Other HEENT History: uses reading glasses, has dentures but doesn't wear Cardiovascular History: Reports: High cholesterol, Hypertension, PVD Respiratory History: Reports: COPD, Sleep apnea Other Respiratory History: does not use CPAP Gastrointestinal History: Reports: GERD Genitourinary History: Reports: Urinary incontinence, Other (see below) Other Genitourinary History: currently has a kidney mass ENERGY ASSISTANT History: Reports: Ectopic , Musculoskeletal History: Reports: Fracture Other Musculoskeletal History: pinky knuckle Neurological History: Reports: Neuropathy, diabetic Psychiatric History: Reports: Anxiety, Depression Endocrine/Metabolic History: Reports: Diabetes, type II, Obesity/BMI 30+ Hematologic History: Reports: Blood transfusion(s) Other Hematologic History: blood transfusion with ectopic Immunologic History: Reports: None Oncologic (Cancer) History: Reports: None Dermatologic History: Reports: None Other Dermatologic History: 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 - Infectious Disease History Infectious Disease History: Reports: None - Past Surgical History Head Surgeries/Procedures: Reports: None HEENT Surgical History: Reports: None Cardiovascular Surgical History: Reports: None GI Surgical History: Reports: Cholecystectomy, Colonoscopy Female Surgical History: Reports: section, Hysterectomy, Salpingo- oophorectomy, Other (see below) Other Female Surgeries/Procedures: Laparotomy for ectopic , bladder repair surgery (sling x2 failed) Endocrine Surgical History: Reports: None Neurological Surgical History: Reports: None Musculoskeletal Surgical History: Reports: Amputation Other Musculoskeletal Surgeries/Procedures:: right foot...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 Oncologic Surgical History: Reports: None, Other (see below) Other Oncologic Surgeries/Procedures: Nephrectomy,left Dermatological Surgical History: Reports: None Social & Family History - Family History Family Medical History: Noncontributory HEENT: Reports: None Cardiac: Reports: CAD, MD Respiratory: Reports: COPD OBGYN: Reports: Musculoskeletal: Reports: Arthritis Neurological: Reports: CVA, Seizure Endocrine/Metabolic: Reports: Diabetes, type II Oncologic: Reports: Colon - Tobacco Use Smoking Status *Q: Former Smoker Years of Tobacco use: 40 Packs/Tins Daily: 1 Used Tobacco, but Quit: No Month Tobacco Last Used: December 2015 Second Hand Smoke Exposure: Yes - Caffeine Use Caffeine Use: Reports: Coffee, Soda, Tea - Recreational Drug Use Recreational Drug Use: No Drug Use in Last 12 Months: No ED ROS GENERAL - Review of Systems Review Of Systems: ROS reveals no pertinent complaints other than HPI. ED EXAM, GENERAL - Physical Exam Exam: See Below (See dictation) Course - Vital Signs Last Recorded V/S: Last Vital Signs Temp 36.8 C 07/26/16 01:29 Pulse 100 07/26/16 02:37 Resp 17 07/26/16 02:37 BP 96/61 07/26/16 02:37 Pulse Ox 96 07/26/16 02:37 - Orders/Labs/Meds Orders: Active Orders 24 hr Category Date Time Status Blood Glucose Check, Bedside [RC] ONETIME Care 07/26/16 01:37 Active Cardiac Monitoring [RC] . DIRECTED Care 07/26/16 01:37 Active EKG Documentation Completion [RC] STAT Care 07/26/16 01:37 Active EKG Documentation Completion [RC] STAT Care 07/26/16 02:01 Active EKG Documentation Completion [RC] STAT Care 07/26/16 02:38 Ordered Oxygen Therapy, ED [RC] ASDIRECTED Care 07/26/16 01:37 Active Pulse Oximetry [RC] ASDIRECTED Care 07/26/16 01:37 Active Chest 1V Frontal [CR] Stat Exams 07/26/16 01:37 Taken Sodium Chloride 0.9% [Normal Saline] 500 ml Med 07/26/16 01:45 Active IV STAT Sodium Chloride 0.9% [Saline Flush] Med 07/26/16 01:37 Active 10 ml FLUSH ASDIRECTED PRN Sodium Chloride 0.9% [Saline Flush] Med 07/26/16 01:37 Active 2.5 ml FLUSH ASDIRECTED PRN Saline Lock Insert [OM.PC] Stat Oth 07/26/16 01:37 Ordered Medication Orders Sodium Chloride (Normal Saline) 500 mls @ 999 mls/hr IV STAT FELICIA Last Admin: 07/26/16 01:47 Dose: 999 mls/hr Sodium Chloride (Saline Flush) 10 ml FLUSH ASDIRECTED PRN PRN Reason: Keep Vein Open Sodium Chloride (Saline Flush) 2.5 ml FLUSH ASDIRECTED PRN PRN Reason: Keep Vein Open Labs: Laboratory Tests 07/26/16 07/26/16 07/26/16 Range/Units 01:35 01:35 01:35 WBC 13.45 H (4.0-11.0) K/uL RBC 4.86 (4.30-5.90) M/uL Hgb 13.5 (12.0-16.0) g/dL Hct 41.4 (36.0-46.0) % MCV 85.2 (80.0-98.0) fL MCH 27.8 (27.0-32.0) pg MCHC 32.6 (31.0-37.0) g/dL RDW Std Deviation 50.6 (28.0-62.0) fl RDW Coeff of Bony 17 H (11.0-15.0) % Plt Count 262 (150-400) K/uL MPV 12.00 (7.40-12.00) fL Neut % (Auto) 75.9 (48.0-80.0) % Lymph % (Auto) 16.0 (16.0-40.0) % Mcclain % (Auto) 5.7 (0.0-15.0) % Eos % (Auto) 1.9 (0.0-7.0) % Baso % (Auto) 0.5 (0.0-1.5) % Neut # (Auto) 10.2 H (1.4-5.7) K/uL Lymph # (Auto) 2.2 (0.6-2.4) K/uL Mcclain # (Auto) 0.8 (0.0-0.8) K/uL Eos # (Auto) 0.3 (0.0-0.7) K/uL Baso # (Auto) 0.1 (0.0-0.1) K/uL Nucleated RBC % 0.0 /100WBC Nucleated RBCs # 0 K/uL INR 0.93 (0.86-1.11) Sodium 136 (136-146) mmol/L Potassium 4.1 (3.5-5.1) mmol/L Chloride 102 (98-110) mmol/L Carbon Dioxide 21 (21-31) mmol/L BUN 15 (6.0-23.0) mg/dL Creatinine 0.8 (0.6-1.5) mg/dL Est Cr Clr Drug Dosing 71.38 mL/min Estimated GFR (MDRD) > 60.0 ml/min Glucose 374 H (60-110) mg/dL POC Glucose (60-110) mg/dL Calcium 9.2 (8.8-10.8) mg/dL Total Bilirubin 0.2 (0.1-1.5) mg/dL AST 15 (5-40) IU/L ALT 18 (8-54) IU/L Alkaline Phosphatase 139 (40-150) Troponin I (0.0-0.29) NG/ML Total Protein 7.5 (6.0-8.0) g/dL Albumin 3.8 (3.5-5.0) g/dL Globulin 3.7 H (2.0-3.5) g/dL Albumin/Globulin Ratio 1.0 L (1.3-2.8) 07/26/16 07/26/16 07/26/16 Range/Units 01:35 01:35 02:20 WBC (4.0-11.0) K/uL RBC (4.30-5.90) M/uL Hgb (12.0-16.0) g/dL Hct (36.0-46.0) % MCV (80.0-98.0) fL MCH (27.0-32.0) pg MCHC (31.0-37.0) g/dL RDW Std Deviation (28.0-62.0) fl RDW Coeff of Bony (11.0-15.0) % Plt Count (150-400) K/uL MPV (7.40-12.00) fL Neut % (Auto) (48.0-80.0) % Lymph % (Auto) (16.0-40.0) % Mcclain % (Auto) (0.0-15.0) % Eos % (Auto) (0.0-7.0) % Baso % (Auto) (0.0-1.5) % Neut # (Auto) (1.4-5.7) K/uL Lymph # (Auto) (0.6-2.4) K/uL Mcclain # (Auto) (0.0-0.8) K/uL Eos # (Auto) (0.0-0.7) K/uL Baso # (Auto) (0.0-0.1) K/uL Nucleated RBC % /100WBC Nucleated RBCs # K/uL INR (0.86-1.11) Sodium (136-146) mmol/L Potassium (3.5-5.1) mmol/L Chloride (98-110) mmol/L Carbon Dioxide (21-31) mmol/L BUN (6.0-23.0) mg/dL Creatinine (0.6-1.5) mg/dL Est Cr Clr Drug Dosing mL/min Estimated GFR (MDRD) ml/min Glucose (60-110) mg/dL POC Glucose 355 H 310 H (60-110) mg/dL Calcium (8.8-10.8) mg/dL Total Bilirubin (0.1-1.5) mg/dL AST (5-40) IU/L ALT (8-54) IU/L Alkaline Phosphatase (40-150) Troponin I < 0.10 (0.0-0.29) NG/ML Total Protein (6.0-8.0) g/dL Albumin (3.5-5.0) g/dL Globulin (2.0-3.5) g/dL Albumin/Globulin Ratio (1.3-2.8) Meds: Medications Generic Name Dose Route Start Last Admin Trade Name Hughq PRN Reason Stop Dose Admin Sodium Chloride 500 mls @ 999 mls/hr 07/26/16 01:45 07/26/16 01:47 Normal Saline IV 999 mls/hr STAT FELICIA Administration Sodium Chloride 10 ml 07/26/16 01:37 Saline Flush FLUSH ASDIRECTED PRN Keep Vein Open Sodium Chloride 2.5 ml 07/26/16 01:37 Saline Flush FLUSH ASDIRECTED PRN Keep Vein Open Discontinued Medications Generic Name Dose Route Start Last Admin Trade Name Freq PRN Reason Stop Dose Admin Enoxaparin Sodium 100 mg 07/26/16 02:36 Lovenox SUBCUT 07/26/16 02:37 ONETIME ONE Insulin Human Regular 10 unit 07/26/16 01:53 07/26/16 02:03 Novolin R SUBCUT 07/26/16 01:54 10 units ONETIME ONE Administration Protocol Nitroglycerin 0.5 gm 07/26/16 01:37 07/26/16 01:44 Nitro-Bid 2% TOP 07/26/16 01:38 0.5 gm ONETIME ONE Administration Nitroglycerin 0.4 mg 07/26/16 02:15 07/26/16 02:22 Nitrostat SL 07/26/16 02:26 0.4 mg Q5M FELICIA Administration Departure - Departure Time of Disposition: 02:45 Disposition: DC/Tfer to Acute Hospital 02 Condition: good Clinical Impression: Unstable angina Forms: ED Department Discharge - My Orders Last 24 Hours: My Active Orders 07/26/16 01:37 Blood Glucose Check, Bedside [RC] ONETIME Cardiac Monitoring [RC] . DIRECTED EKG Documentation Completion [RC] STAT Oxygen Therapy, ED [RC] ASDIRECTED Pulse Oximetry [RC] ASDIRECTED Chest 1V Frontal [CR] Stat Sodium Chloride 0.9% [Saline Flush] 10 ml FLUSH ASDIRECTED PRN Sodium Chloride 0.9% [Saline Flush] 2.5 ml FLUSH ASDIRECTED PRN Saline Lock Insert [OM.PC] Stat 07/26/16 01:45 Sodium Chloride 0.9% [Normal Saline] 500 ml IV STAT 07/26/16 02:01 EKG Documentation Completion [RC] STAT 07/26/16 02:38 EKG Documentation Completion [RC] STAT - Assessment/Plan Last 24 Hours: My Active Orders 07/26/16 01:37 Blood Glucose Check, Bedside [RC] ONETIME Cardiac Monitoring [RC] . DIRECTED EKG Documentation Completion [RC] STAT Oxygen Therapy, ED [RC] ASDIRECTED Pulse Oximetry [RC] ASDIRECTED Chest 1V Frontal [CR] Stat Sodium Chloride 0.9% [Saline Flush] 10 ml FLUSH ASDIRECTED PRN Sodium Chloride 0.9% [Saline Flush] 2.5 ml FLUSH ASDIRECTED PRN Saline Lock Insert [OM.PC] Stat 07/26/16 01:45 Sodium Chloride 0.9% [Normal Saline] 500 ml IV STAT 07/26/16 02:01 EKG Documentation Completion [RC] STAT 07/26/16 02:38 EKG Documentation Completion [RC] STAT
[2016-07-26] MEDS ORDERED: Sodium Chloride 0.9% 500 ML IV SCH (01:45)
[2016-07-26] MEDS ORDERED: Insulin Regular, Human 100 Units/ML 10 ML Vial SUBCUT ONE (01:53)
[2016-07-26 02:07] LABS: CHLORIDE,CL 102 mmol/L (98-110); SODIUM,NA 136 mmol/L (136-146)
[2016-07-26] MEDS: Nitroglycerin 0.4 MG Tab.SL SL SCH ×3 (02:09→02:22)
[2016-07-26] MEDS ORDERED: Enoxaparin 100 MG/1 ML Syringe SUBCUT ONE (02:36)
[2016-07-26] MEDS ORDERED: Nitroglycerin/D5W 25 MG/250 ML BOTTLE IV SCH (03:00)
[2016-07-26] MEDS ORDERED: Sodium Chloride 0.9% 1,000 ML IV SCH (03:00)
[2016-07-26 03:23] VITALS: BP 115/57
--- NOTE | 2016-07-26 14:34 | CR ---
EXAM DATE: 07/26/16 PATIENT'S AGE: 55 Patient: JOSE SANTOS Facility: [place], [place] Site . Site : [id number] Study: XRay Chest [id number]/11/2017 2:08:25 AM Ordering Physician: Charu Thao Final Report: INDICATION: CHEST PAIN STARTING TONIGHT TECHNIQUE: Chest 1 view. COMPARISON: 07/17/2016. FINDINGS: No pneumothorax or pleural effusion. Lungs are clear. Cardiac and mediastinal contours are within normal limits. Upper abdomen and osseous structures as imaged show no acute abnormality. IMPRESSION: No acute cardiopulmonary disease. Dictated by: Vincenzo Giron MD @ 07/26/2016 02:18:14 (Electronic Signature) Report Signed by Proxy and Original Signed Document filed in the Medical Record. [facility]
== END 2016-07-26 03:45 ==
LOC: MW.ED 01:29
DX: I20.0 Unstable angina (principal); E11.9 Type 2 diabetes mellitus without complications; E78.00 Pure hypercholesterolemia, unspecified; I73.9 Peripheral vascular disease, unspecified; I10 Essential (primary) hypertension; J44.9 Chronic obstructive pulmonary disease, unspecified; E11.40 Type 2 diabetes mellitus with diabetic neuropathy, unspecified; F41.8 Other specified anxiety disorders; Z87.891 Personal history of nicotine dependence; Z88.8 Allergy status to other drugs, medicaments and biological substances; Z89.429 Acquired absence of other toe(s), unspecified side; Z79.899 Other long term (current) drug therapy; Z79.4 Long term (current) use of insulin
CPT/HCPCS: 36415; 71010; 80053; 82962; 84484; 85025; 85610; 93005; 96361; 96365; 96372; 96375; 99285; A9270; J1650; J7040; J1815-GY

== ENCOUNTER → 2016-08-16 | Outpatient (CLI) | payer MEDICAID ==
[2016-08-16 13:46] LABS: CHLORIDE,CL 102 mmol/L (98-110); SODIUM,NA 139 mmol/L (136-146)
== END ==
LOC: MW.CHFP 13:07
PROVIDERS: ATTEND Student in an Organized Health Care Education/Training Program
DX: E11.65 Type 2 diabetes mellitus with hyperglycemia (principal); I10 Essential (primary) hypertension; E78.5 Hyperlipidemia, unspecified
CPT/HCPCS: 36415; 80053; 80061; 82044; 83036